=== PATIENT | female | born 1995 | race African-American/Black ===

== ENCOUNTER 2020-01-04 08:20 | Emergency (ER) | payer OTHER ==
[~2020-01-04] VITALS: Ht 157.5 cm; Wt 81.7 kg
[2020-01-04 08:33] VITALS: BP 104/61
[2020-01-04] MEDS ORDERED: ZOFRAN ODT4 MG PO (08:50)
== END 2020-01-04 08:54 | disposition home or self-care (01) ==
LOC: ER 08:20
DX: R11.2 Nausea with vomiting, unspecified (principal); Z90.49 Acquired absence of other specified parts of digestive tract; Z88.6 Allergy status to analgesic agent